=== PATIENT | female | born 1985 | race Caucasian/White ===

== ENCOUNTER 2017-08-20 07:01 | Outpatient (CLI) | payer OTHER ==
--- NOTE | 2017-08-20 07:47 | ULT ---
RIGHT UPPER QUADRANT ULTRASOUND: Date: 08/20/17 HISTORY: 32-year-old female with history of elevated LFTs. FINDINGS: Coarse echogenicity throughout the liver consistent with fatty changes. The gallbladder is demonstrat ed, without evidence of gallstones, wall thickening, edema, or pericholecystic fluid. Common bile jefferson t is 0.5 cm. Visualized pancreas and right kidney are unremarkable. No right upper quadrant fluid col lection. IMPRESSION: Coarse liver increased echogenicity, evidence for fatty change. No ductal dilatation. No evidence of gallstones. POS: OFF
--- NOTE | 2017-08-23 14:41 | ULT ---
ADDENDUM: Exam should read HEPATIC ULTRASOUND WITH VASCULAR DUPLEX INCLUDING COLOR AND SPECTRAL DOPPLER IMAGING. Following the initial imaging of the right upper quadrant, the patient was brought back and vascular duplex including color and spectral Doppler imaging is performed. Portal vein, hepatic vein, and hepatic arterial flow all demonstrate antegrade flow. IMPRESSION: Fatty changes in the liver. Unremarkable spleen. No ductal dilatation. Antegrade hepatic arterial, hepatic venous, and portal venous flow.
== END 2017-08-20 07:02 | disposition home or self-care (01) ==
LOC: SCSULT 07:01
PROVIDERS: ATTEND Internal Medicine Gastroenterology
DX: R74.8 Abnormal levels of other serum enzymes (principal); R93.2 Abnormal findings on diagnostic imaging of liver and biliary tract
CPT/HCPCS: 76700; 76705

== ENCOUNTER 2018-01-19 11:56 | Emergency (ER) | payer OTHER, MEDICAID ==
[2018-01-19 12:20] LABS: Bilirubin Negative (Negative); Blood, Urine Large (Negative); Clarity Slightly Cloudy (Clear); Glucose, Urine (Dipstick) Negative (Negative); Leukocyte Negative (Negative); Nitrite Negative (Negative); Protein, Urine (Dipstick) Trace mg/dL (Neg-Trace); Specific Gravity, Urine 1.015 (1.005-1.030); Urobilinogen 0.2 mg/dL (0.2-1.0); pH, Urine 7.5 (5.0-9.0)
[2018-01-19 12:22] LABS: Bacteria/HPF 1+ HPF (None Seen); Hyaline Casts/LPF NONE SEEN LPF (0-3 Hyaline); RBC/HPF 21-50 HPF (0-3); Squamous Epithelial 0-3 HPF (0-3); WBC/HPF 0-3 HPF (0-3)
[2018-01-19 12:43] LABS: #Basophils 0.1 thou/uL (0.0-0.2); #Eosinphils 0.1 thou/uL (0.0-0.7); #Lymphocytes 3.2 thou/uL (1.20-3.40); #Monocytes 0.6 thou/uL (0.11-0.59); #Neutrophils 4.8 thou/uL (1.40-6.50); %Eosinophils 1.1 % (0.0-10.0); %Lymphocytes 36.5 % (21.0-51.0); %Monocytes 6.8 % (0.0-10.0); %Neutrophils 54.6 % (42.0-75.0); Hemoglobin 13.1 g/dL (12.0-16.0); Mean Corpuscular HGB CONC 34.9 g/dL (32.0-36.0); Mean Corpuscular Hemoglobin 30.4 pg (27.0-31.0); Mean Corpuscular Volume 87.1 fL (78.0-98.0); Mean Platelet Volume 9.5 fL (7.4-10.4); Platelet Count 186 thou/uL (130-400); RBC Distribution Width 11.5 % (11.5-14.5); White Blood Cell (WBC) Count 8.8 thou/uL (4.8-10.8)
--- NOTE | 2018-01-19 14:12 | ULT ---
PELVIC ULTRASOUND: Date: 01/19/18 HISTORY: female with bleeding. TECHNIQUE: Multiplanar King scale and color Doppler images were obtained in a transabdominal and transvaginal pe lvic ultrasound. Spectral analysis of the Doppler waveforms of the ovaries performed. FINDINGS: No gestational sac is seen within the uterus. The uterus is normal in size and appearance. The endome trial stripe is normal in thickness, measuring 8.0 mm. No free fluid is seen in the pelvis. Both ovaries are normal in size and appearance and demonstrate n ormal internal flow. No ectopic is visualized. IMPRESSION: No evidence of intrauterine or ectopic . POS: CET
[2018-01-21 19:35] LABS: Chlamydia by PCR Not Detected (NotDetected); GC by PCR Not Detected (NotDetected)
== END 2018-01-19 14:19 | disposition home or self-care (01) ==
LOC: SCSER 11:56
DX: O20.9 Hemorrhage in early pregnancy, unspecified (principal)
CPT/HCPCS: 36415; 76856; 81003; 81015; 84702; 85025; 86900; 86901; 87480; 87491; 87510; 87591; 87660

== ENCOUNTER 2019-06-14 11:17 | Inpatient (IN) | payer OTHER ==
[2019-06-14 12:26] VITALS: BMI 33.6
[2019-06-14] MEDS ORDERED: hydrALAZINE 20 MG/ML VIAL ONE (12:34)
[2019-06-14] MEDS ORDERED: Ibuprofen 800 MG TAB PO PRN (12:49)
[2019-06-14] MEDS ORDERED: Ondansetron PF 4 MG/2 ML Vial IVP PRN ×2 (12:49→21:17)
[2019-06-14] MEDS ORDERED: Diphenoxylate HCl/Atropine Tablet PO PRN ×2 (12:49)
[2019-06-14] MEDS ORDERED: Lidocaine 1% (PF) 30 ML VIAL SC PRN (12:49)
[2019-06-14] MEDS ORDERED: Carboprost 250 MCG/ML AMP IM PRN (12:49)
[2019-06-14] MEDS ORDERED: Butorphanol Tartrate 1 MG/ML VIAL SLOW IVP PRN (12:49)
[2019-06-14] MEDS ORDERED: Promethazine HCl 25 MG/ML VIAL IM PRN ×2 (12:49→21:17)
[2019-06-14] MEDS ORDERED: hydrALAZINE 20 MG/ML VIAL SLOW IVP PRN (12:49)
[2019-06-14] MEDS ORDERED: HYDROcodone/Acetaminophen 5/325 mg Tablet PO PRN ×2 (12:49)
[2019-06-14] MEDS ORDERED: Penicillin G Potassium 5 MILL.UNITS VIAL ONE (12:52)
[2019-06-14] MEDS ORDERED: Betamet Acet/Betamet Na Ph 30 MG/5 ML VIAL ONE (12:52)
[2019-06-14] MEDS ORDERED: Penicillin G Potassium 5 MILL.UNITS in Sodium Chloride 0.9% 100 ML IVPB SCH (13:00)
[2019-06-14] MEDS ORDERED: Magnesium Sulfate 4 GM in Sodium Chloride 0.9% 250 ML 250 ML IVPB SCH (13:00)
[2019-06-14] MEDS: Betamet Acet/Betamet Na Ph 30 MG/5 ML VIAL IM SCH (13:01)
[2019-06-14] MEDS: Lactated Ringer's 1,000 ML IV SCH ×2 (13:04→21:27)
--- NOTE | 2019-06-14 13:04 | PDOC.LDHP ---
Labor and Delivery H&P Chief complaint: loss of fluid HPI: Patient arrive to L&D complaining of her water being broken. She was having low back pain last night, but did not think much of it. at 10am her water broke with a big gush. She denies PONCE, RUQ pain. Last night in the shower she had some spots in her vision, but they resolved. She is really swollen on her feet. Current gestational age (weeks): 35 (1) Due date: 07/18/19 Dating criteria: first trimester ultrasound (at 7 weeks) Grav: 4 Para: 0 OB History Details: SAB at 19. Ectopic treated with methotreaxte in 2018 SAB 08/2018 Current Current complications: other (elevated BP x 1 severe range) Current medications: pre-lenin vitamins Previous surgical history: none Allergies/Adverse Reactions: Allergies Allergy/AdvReac Type Severity Reaction Status Date / Time sulfamethoxazole Allergy Hives Verified 06/14/19 12:29 [From Bactrim] trimethoprim [From Bactrim] Allergy Verified 06/14/19 12:28 Social history: none - Physical Exam Abnormal vital signs: Severe range BP 163/95. Repeat after hydralazine 153/94 General: NAD, resting Lungs: nonlabored breathing Abdomen: gravid Extremeties: pitting edema FHT: category 1 (135 baseline, +Accels, Moderate variability. No decles.) Stephenson contractions every: q2-5 mins. - Vaginal Exam cm dilated: 3 Effacement: 50% Station: -2 - OB Labs Blood type: O RH: positive Antibody Screen: negative HIV: negative RPR: negative HEPSAg: negative 1 hour GCT: negative GBS: unknown Urine drug screen: negative Rubella: immune - Assessment L&D Assessment: premature rupture of membranes - Plan Plan: admit to L&D, GBS antibiotic prophylaxis, magnesium for seizure prophylaxis -: Celestone now ans repeated at 12 hrs. GBS for prophylaxis. Magnesium for seizure precautions due to vision changes yesterday as well at elevated BPs on arrival and need to IV hydralazine. Labs for Pree collected. Will wait to start pitocin until steroid benefit is achieved. Unless BP continue to be severe, then augementation with pitocin will start immediately. I will manage patient, however, due to and severe range BP x 1, I Disucssed case with OB Hospitalist Dr. Reynoso.
[2019-06-14] MEDS: Magnesium Sulfate 20 gm/500 ml 20 GM/500 ML BAG IVPB SCH ×2 (13:15→21:36)
[2019-06-14 13:20] LABS: Hemoglobin 12.4 g/dL (12.0-16.0); Mean Corpuscular HGB CONC 34.3 g/dL (32.0-36.0); Mean Corpuscular Hemoglobin 32.7 pg (27.0-31.0); Mean Corpuscular Volume 95.4 fL (78.0-98.0); Mean Platelet Volume 9.9 fL (7.4-10.4); Platelet Count 167 thou/uL (130-400); RBC Distribution Width 14.2 % (11.5-14.5); Red Blood Cell (RBC) Count 3.78 mill/uL (4.20-5.40); White Blood Cell (WBC) Count 7.7 thou/uL (4.8-10.8)
[2019-06-14 13:59] LABS: Creatinine, Urine 21.79 mg/dL (47-110)
[2019-06-14 14:00] LABS: HBSAg Index 0.21 S/CO (0-0.99); Hep B Surf Ag Non-Reactive S/CO (NonReactive)
[2019-06-14] MEDS ORDERED: Magnesium 2 GM/50 ML 2 GM in Premix Bag 1 BAG IVPB SCH (14:00)
[2019-06-14 14:03] LABS: Syphilis Antibody Nonreactive (Nonreactive); Syphilis Antibody Index 0.09 S/CO (<1.00 Non-Reactive)
[2019-06-14 14:22] LABS: ALT (SGPT) 20 U/L (8-55); AST (SGOT) 22 U/L (5-34); Albumin 3.6 g/dL (3.5-5.0); Alkaline Phosphatase 298 U/L (40-110); Anion Gap 16 mmol/L (10-20); BUN (Urea Nitrogen) 10 mg/dL (7.0-18.7); Bilirubin, Total 0.2 mg/dL (0.2-1.2); Calc. Creatinine Clearance 180 mL/min (70-130); Calcium 10.3 mg/dL (7.8-10.44); Carbon Dioxide 18 mmol/L (22-29); Chloride 107 mmol/L (98-107); Estimated GFR-MDRD Greater than 90; Globulin 2.9 g/dL (2.4-3.5); Glucose 67 mg/dL (70-105); Potassium 4.2 mmol/L (3.5-5.1); Protein, Total 6.5 g/dL (6.0-8.3); Sodium 137 mmol/L (136-145)
[2019-06-14] MEDS ORDERED: Bupivacaine 0.25% HCL 30 ML VIAL ONE (16:11)
[2019-06-14] MEDS: Penicillin G 2.5 MILL.units 2.5 MILL.UNITS in Premix Bag 1 BAG IVPB SCH ×2 (17:03→22:12)
[2019-06-14] MEDS ORDERED: Acetaminophen 325 MG TAB PO PRN ×2 (18:10→21:17)
[2019-06-14] MEDS ORDERED: Acetaminophen 325 MG TAB PO SCH (18:15)
[2019-06-14] MEDS ORDERED: Fentanyl 4 mcg/Bup 0.1% Cadd 100 ML ONE (20:29)
[2019-06-14] MEDS ORDERED: Naloxone HCl 0.4 mg/ml Vial IVP PRN ×2 (21:17)
[2019-06-14] MEDS ORDERED: diphenhydrAMINE 50 MG/ML VIAL IVP PRN (21:17)
[2019-06-14] MEDS ORDERED: EPHEDRINE 25 MG/5 ML SYRINGE SLOW IVP PRN (21:17)
[2019-06-14] MEDS ORDERED: Lactated Ringer's 500 ML IV PRN (21:17)
[2019-06-14] MEDS ORDERED: Communication Order-Pharmacy FS SCH (21:30)
[2019-06-14] MEDS ORDERED: Fentanyl 4 mcg/Bupivacaine 0.1% Cassette 100 ML EPIDURAL SCH (21:30)
[2019-06-14] MEDS: NS w/ Oxytocin 10 units 500 ML IV SCH (21:36)
[2019-06-14] MEDS ORDERED: Penicillin G 2.5 MILL.units 50 ML ONE (22:04)
[2019-06-15] MEDS: Betamet Acet/Betamet Na Ph 30 MG/5 ML VIAL IM SCH (01:09)
[2019-06-15] MEDS ORDERED: Penicillin G 2.5 MILL.units 50 ML ONE (01:41)
[2019-06-15] MEDS: NS / Oxytocin 40 units/1000ml 1,000 ML IV PRN ×2 (02:20→05:14)
[2019-06-15] MEDS ORDERED: Carboprost 250 MCG/ML AMP ONE ×2 (02:34→03:00)
--- NOTE | 2019-06-15 02:56 | PDOC.OPDEL ---
OB Operative/Delivery Note Delivery Dr/Surgeon: janell Zuleta Pre-Delivery Diagnosis: active labor, ruptured membrane Procedure/Post Delivery Dx: spontaneous vaginal delivery Weeks gestation: 35 Anesthesia: epidural - Findings A Sex: female - Additional Findings/Plan Placenta delivered: spontaneous Repaired Obstetrical Laceration: 1st degree Estimated blood loss: 400mL Compilations/Other Findings: Brisk bleeding after delivery secondary to uterine atony. hemabate given Post delivery plan: recovery in LICU (continue mag for 24hours after delivery.)
[2019-06-15] MEDS: Magnesium Sulfate 20 gm/500 ml 20 GM/500 ML BAG IVPB SCH ×2 (07:27→17:06)
[2019-06-15] MEDS: Lactated Ringer's 1,000 ML IV SCH (20:14)
[2019-06-16] MEDS ORDERED: Magnesium Sulfate 20 gm/500 ml 20 GM/500 ML BAG IVPB SCH (03:36)
[2019-06-16] MEDS ORDERED: Calcium Gluconate 4.6 MEQ in Sodium Chloride 0.9% 100 ML IVPB PRN (03:36)
[2019-06-16] MEDS ORDERED: Ibuprofen 800 MG TAB PO SCH (03:45)
[2019-06-16] MEDS: Lactated Ringer's 1,000 ML IV SCH ×2 (03:46→21:05)
[2019-06-16] MEDS: NS w/ Oxytocin 10 units 500 ML IV SCH (03:50)
[2019-06-16] MEDS: Betamet Acet/Betamet Na Ph 30 MG/5 ML VIAL IM SCH (03:50)
--- NOTE | 2019-06-16 08:32 | PDOC.PP ---
Post Progress Note Vital Signs (12 hours) Temp Pulse Resp BP Pulse Ox 06/16/19 04:07 98.6 F 85 17 131/91 H 99 Weight Weight 190 lb Result Diagrams: 06/14/19 13:08 06/14/19 13:08 Additional Labs: Post Labs Blood Type O POSITIVE 06/14/19 13:08 Hep Bs Antigen Non-Reactive S/CO (NonReactive) 06/14/19 13:09
--- NOTE | 2019-06-16 08:34 | PDOC.PP ---
Post Progress Note Post Day #: 2 Subjective: Patient is doing well. Up to ambulate. Pumping and not feeding at the breast. PO intake tolerated: yes Flatus: yes Ambulation: yes Vital Signs (12 hours) Temp Pulse Resp BP Pulse Ox 06/16/19 04:07 98.6 F 85 17 131/91 H 99 Weight Weight 190 lb - Physical Examination General: NAD Respiratory: non-labored breathing Abdominal: + bowel sounds, lochia (minimal) Extremities: negative homans (B) Skin: CS incision dry & intact, no rash Neurological: no gross focal deficits Psychiatric: A&Ox3, normal affect Result Diagrams: 06/14/19 13:08 06/14/19 13:08 Additional Labs: Post Labs Blood Type O POSITIVE 06/14/19 13:08 Hep Bs Antigen Non-Reactive S/CO (NonReactive) 06/14/19 13:09 (1) premature rupture of membranes Code(s): O42.919 - PRETRM ELAN ROM, UNSP TIME BETW RUPT AND ONST LABR, UNSP TRI Status: Acute (2) (spontaneous vaginal delivery) Code(s): O80 - ENCOUNTER FOR FULL-TERM UNCOMPLICATED DELIVERY Status: Acute (3) Premature delivery before 37 weeks Code(s): O60.10X0 - LABOR W DELIVERY, UNSP TRIMESTER, UNSP Status: Acute (4) Preeclampsia Code(s): O14.90 - UNSPECIFIED PRE-ECLAMPSIA, UNSPECIFIED TRIMESTER Status: Acute - Assessment/Plan A; g4 now p1 s/p following PPROM, Pree managed with mag, and delivery P: Routine care today Evaluated for discharge home tomorrow
[2019-06-17] MEDS ORDERED: hydrALAZINE 20 MG/ML VIAL SLOW IVP PRN (00:44)
[2019-06-17] MEDS ORDERED: NS / Oxytocin 40 units/1000ml 1,000 ML IV SCH (00:45)
[2019-06-17] MEDS ORDERED: Bisacodyl 10 MG SUPP PR PRN (00:45)
[2019-06-17] MEDS ORDERED: Milk Of Magnesia 30 ML UDCUP PO PRN (00:45)
[2019-06-17 01:37] VITALS: TEMP 98.3
[2019-06-17] MEDS ORDERED: Ibuprofen 800 MG TAB PO SCH (06:00)
--- NOTE | 2019-06-17 06:44 | PDOC.PP ---
Post Progress Note Post Day #: 2 Subjective: Doing well PO intake tolerated: yes Flatus: yes Ambulation: yes Vital Signs (12 hours) Temp Pulse Resp BP Pulse Ox 06/16/19 23:55 98.3 F 91 18 135/68 06/16/19 23:15 97 06/16/19 20:21 99.7 F H 88 16 145/83 H 97 Weight Weight 190 lb - Physical Examination General: NAD Cardiovascular: no m/r/g Respiratory: clear to auscultation bilaterally Abdominal: + bowel sounds, lochia, no distention, appropriately TTP Extremities: negative homans (B) Neurological: no gross focal deficits Psychiatric: A&Ox3, normal affect Result Diagrams: 06/14/19 13:08 06/14/19 13:08 Additional Labs: Post Labs Blood Type O POSITIVE 06/14/19 13:08 Hep Bs Antigen Non-Reactive S/CO (NonReactive) 06/14/19 13:09 (1) (spontaneous vaginal delivery) Code(s): O80 - ENCOUNTER FOR FULL-TERM UNCOMPLICATED DELIVERY Status: Acute - Assessment/Plan PPD2...doing well. Srtable for DC Patient was in shower when I entered so info given by i n room. I have also addressed DC to home with the RN team.
[2019-06-17] MEDS ORDERED: Ferrous Sulfate 325 MG TAB PO SCH (08:00)
[2019-06-17] MEDS ORDERED: Docusate Calcium (SURFAK) 240 MG CAP PO SCH (09:00)
[2019-06-17] MEDS ORDERED: Adacel (T-DAP) 0.5 ML SYRINGE IM SCH (09:00)
[2019-06-17 09:28] VITALS: BP 141/95
== END 2019-06-17 10:10 | disposition home or self-care (01) | DRG 805 ==
LOC: L&D/OP 11:17 → L&D 06-15 02:54 → 3SW 06-16 03:44
PROVIDERS: ADMIT Obstetrics & Gynecology; ATTEND Obstetrics & Gynecology
PROC: 10E0XZZ Delivery of Products of Conception, External Approach (ICD-10-PCS; principal; 2019-06-16)
PROC: 0HQ9XZZ Repair Perineum Skin, External Approach (ICD-10-PCS; 2019-06-16)
DX: O42.913 Preterm premature rupture of membranes, unspecified as to length of time between rupture and onset of labor, third trimester (principal); O60.13X0 Preterm labor second trimester with preterm delivery third trimester, not applicable or unspecified; Z37.0 Single live birth; O14.94 Unspecified pre-eclampsia, complicating childbirth; O70.0 First degree perineal laceration during delivery; Z3A.35 35 weeks gestation of pregnancy; Z88.2 Allergy status to sulfonamides; Z88.1 Allergy status to other antibiotic agents
CPT/HCPCS: 36415; 80053; 82570; 83735; 84156; 85027; 86780; 86850; 86900; 86901; 87340; J0360; J0702; J2405; J2540; J2590; J3475; J3490; J7050; S0020